=== PATIENT | female | born 1980 | race Hispanic/Latino ===

== ENCOUNTER 2016-04-04 21:31 | Emergency (ER) | payer SELFPAY ==
[~2016-04-04 21:31] MED LIST: FES300 PO; GLU500 PO; PNV1TABL PO; SULF1TAB35 PO
[2016-04-04 21:36] VITALS: BP 116/79; PULSE 124; RESP 18; O2SAT 97
[2016-04-04 22:03] LABS: BASOPHILS % (AUTO) 0.1 % (0-3); EOSINOPHILS % (AUTO) 0.9 % (0-5); MONOCYTES % (AUTO) 4.4 % (4-12); Mean Corpuscular Hemoglobin 31.2 pg (27.0-35.0); Mean Corpuscular Volume 89.8 fL (81-100); NEUTROPHILS % (AUTO) 86.3 % (40-74); Platelet Count 365 bil/L (150-400)
[2016-04-04 22:24] LABS: Magnesium 1.7 mg/dL (1.6-2.6)
[2016-04-04 23:14] LABS: APPEARANCE,URINE CLOUDY (CLEAR,HAZY); COLOR,URINE YELLOW (YELLOW); OCCULT BLOOD,URINE MODERATE (NEGATIVE); PH,URINE 5.5 (5.0-8.0); UROBILINOGEN,URINE NORMAL (NORMAL)
--- NOTE | 2016-04-05 00:03 | ED.REPORT ---
HPI-Abd Pain F Under 41 Date of Service Apr 05, 2016 ED Provider: Dr. Paresh Daniel M.D. A 35 year old female with a history of diabetes and UTI presents to the ED with lower abdominal pain onset four days ago. The patient also reports nausea and vomiting (x2) this evening. She denies diarrhea, cough, hematochezia, hematuria , fever, or other symptoms. The patient speaks Chinese and her daughter was translating. Nursing Notes Stated Complaint: STOMACH PAIN Chief Complaint: Female Abdominal Pain Nursing Notes Reviewed: Yes Allergies: Coded Allergies: No Known Allergies (Unverified Allergy, Unknown, 04/04/16) Scheduled Cephalexin (Keflex) 500 Mg Capsule 500 MG PO QID Ferrous Sulfate-Expunged Drug, Do Not Renew! (Feosol-Expunged Drug, Do Not Renew !) 325 Mg Tablet 325 MG PO DAILY Metformin-Expunged Drug, Do Not Renew! (Metformin-Expunged Drug, Do Not Renew!) 500 Mg Tablet 500 MG PO BID TAKE WITH EVENING MEAL Ondansetron ODT (Ondansetron ODT) 8 Mg Tab.rapdis 8 MG PO QID Sulfamethoxazole/Trimeth 800-160 mg (Bactrim DS 800-160 mg) 1 Each Tablet 1 TABLET PO BID Miscellaneous Medications Pnv With Ca,No.72/Iron/Fa (Pnv Plus Multivit Tab) 1 Each Tablet 1 EACH PO General Time Seen by MD: 00:02 Chief Complaint Abdominal pain Hx Obtained From: Patient, Daughter Arrived By: Walk-in Sudden in Onset?: Yes Onset Occurred: 4 days ago Symptom Duration: Since onset Location: : Abdomen lower Quality: Painful Severity: Current: Moderate Severity: Maximum: Moderate Associated with: Reports: Nausea, Vomiting, Denies: Fever, Hematochezia, Hematuria Pertinent Negative: Relieved by nothing Recent Healthcare: No recent doctor visit Similar Sx Previous: Yes Past Medical History Past Medical History DM on Metformin UTI Past Surgical History Reports: Smoking History Never Smoker Social History Alcohol Use: Denies alcohol use Drug Use: Denies drug use Other Social History: Good social support, Lives with children Ambulatory Status Independent Review of Systems Constitutional: Denies: Fever Respiratory: Denies: Non-productive cough, Shortness of breath GI: Reports: Abdominal pain (Lower), Nausea, Vomiting (x2), Denies: Diarrhea, Hematochezia Female: Denies: Hematuria Complete sys rev & neg: except as marked. Physical Exam Initial Vital Signs Vital Signs (First) Date Time Temp Pulse Resp B/P Pulse Ox O2 Delivery O2 Flow Rate FiO2 04/04/16 21:36 37.0 124 18 116/79 97 Room Air Initial VS: Reviewed Head / Eyes: Atraumatic, Normocephalic ENT: Conjunctiva normal, No scleral icterus Skin: Warm, Dry, No cyanosis Neurologic: Alert, Oriented, Nonfocal Psychiatric: Mood/affect normal, Behavior normal, Normal thought content General/Constitutional: Awake, Alert Appearance / Presentation: Positive: Uncomfortable Flushed Respiratory / Chest: Breath sounds NL, Breath sounds = bilat, No respiratory distress Cardiovascular: Heart rate NL, Regular rhythm, Heart sounds NL Abdomen: Soft, Non-tender Interpretation & Diagnostics URINE DIPSTICK: 1.025 sp gravity 5 pH + Leukocytes Positive Nitrite Trace protein 250 mg/dl Glucose + Small Ketones Normal Urobilinogen ~ 250 Prabhjot/ml Blood URINE : Negative Lab Results Interpretation Result Diagram: 04/04/16214904/04/162149 Test 04/04/16 21:50 04/04/16 22:57 White Blood Count 15.1th/mm3 (3.8-10.1) Red Blood Count 4.71mil/mm3 (3.90-5.20) Hemoglobin 14.7g/dL (12.0-15.6) Hematocrit 42.3% (35.0-46.0) Mean Corpuscular Volume 89.8fL (81-100) Mean Corpuscular Hemoglobin 31.2pg (27.0-35.0) Mean Corpuscular Hemoglobin Concent 34.8% (32.0-37.0) Red Cell Distribution Width 12.3% (12.3-15.4) Platelet Count 365bil/L (150-400) Neutrophils (%) (Auto) 86.3% (40-74) Lymphocytes (%) (Auto) 8.0% (14-46) Monocytes (%) (Auto) 4.4% (4-12) Eosinophils (%) (Auto) 0.9% (0-5) Basophils (%) (Auto) 0.1% (0-3) Sodium Level 133mEq/L (134-144) Potassium Level 3.7mEq/L (3.5-5.2) Chloride Level 99mEq/L (97-108) Carbon Dioxide Level 22mmol/L (18-29) Blood Urea Nitrogen 17mg/dL (6-20) Creatinine 0.46mg/dL (0.57-1.00) Estimat Glomerular Filtration Rate 223mL/min (>59) Glucose Level 285mg/dL (60-99) Calcium Level 8.8mg/dL (8.5-10.1) Magnesium Level 1.7mg/dL (1.6-2.6) Total Bilirubin 0.8mg/dL (0.0-1.2) Aspartate Amino Transf (AST/SGOT) 16U/L (0-50) Alanine Aminotransferase (ALT/SGPT) 26U/L (0-32) Alkaline Phosphatase 93U/L (25-150) Total Protein 7.6g/dL (6.4-8.4) Albumin 4.0g/dL (3.4-5.0) Lipase 40U/L (13-60) Hold Haney Top Tube Received (Received) Urine Color Yellow (YELLOW) Urine Appearance Cloudy (CLEAR,HAZY) Urine pH 5.5 (5.0-8.0) Urine Specific [place] 1.030 (1.003-1.035) Urine Protein 30mg/dL (NEG,TRACE) Urine Glucose (UA) 500mg/dL (NEGATIVE) Urine Ketones Tracemg/dL (NEGATIVE) Urine Occult Blood Moderate (NEGATIVE) Urine Nitrite Positive (NEGATIVE) Urine Bilirubin Negative (NEGATIVE) Urine Urobilinogen Normalmg/dL (NORMAL) Urine Leukocyte Esterase Small (NEGATIVE) Urine RBC 3-10/hpf (0-2) Urine WBC Packed/hpf (0-5) Urine Epithelial Cells Many/hpf (NONE-MOD) Urine Crystals None seen (NONE SEEN) Urine Bacteria Many/hpf (NONE-FEW) Urine Hyaline Casts None/lpf (NONE) Urine Granular Casts None seen (NONE SEEN) Urine Waxy Casts None seen (NONE SEEN) Urine Red Blood Cell Casts None seen (NONE SEEN) Urine White Blood Cell Casts None seen (NONE SEEN) Urine Mucus None seen (None Seen) Urine Trichomonas None seen (NONE SEEN) Urine Yeast None (NONE SEEN) Urinalysis Comment None Urine Culture Reflexed Indicated Re-Eval/Medical Decision Med Decision/Clinical Course Med Decision/Clinical Course: 35-year-old with diabetes presents with lower pelvic pain for four days. She vomited today and the pain was a bit worse. She is felt flushed but no overt fever. Exam is benign with minimal tenderness. No evidence of peritonitis. Urinalysis is grossly positive. White count moderately elevated at 15,000. Remainder of her labs are unremarkable. Begun with Rocephin IV for her UTI, some IV hydration provided, Zofran for nausea, and she is discharged now with Keflex to follow for a ten-day course. Early follow-up with PCP advised. Source of Hx: Old records Re-Evaluation/Progress : Time of Eval: :15 Patient Status: Condition improved Re-Evaluation/Progress Note: Discussed with patient lab results, diagnosis, and plan for discharge. Follow-up and return to the ER instructions given. Patient agrees with plan for care and all questions were addressed. Counseled Regarding: Diagnosis, Lab results, Need for follow-up, When/why to return to ED Discharge & Departure Shift Change Sign-Out Response to Therapy: Improved Primary Impression: UTI (urinary tract infection) Urinary tract infection type: acute cystitis Hematuria presence: without hematuria Qualified Code: N30.00 - Acute cystitis without hematuria Additional Impression: Diabetes mellitus Diabetes mellitus type: type 2 Diabetes mellitus complication status: without complication Qualified Code: E11.9 - Type 2 diabetes mellitus without complications Disposition: Home Discharge Condition All VS Reviewed: Yes Condition: Improved Patient Instructions: Urinary Tract Infection in Women (ED) Additional Instructions: Take Keflex four times daily for ten days. Drink plenty of fluids and maintain good hydration. Return if any immediate issues, such as continued fever, worsening symptoms despite treatment, vomiting, or other new symptoms of concern. Take Zofran up to four times daily if needed for nausea. Follow-up with your doctor in the office. Call tomorrow morning for follow-up visit. Wasta Keflex cuatro veces al da cyril sandra bassett. Korin muchos lquidos y mantenga raphael buena hidratacin. Regrese si hay problemas inmediatos, jose m fiebre continua, empeoramiento de los sntomas a pesar del tratamiento, vmitos u otros nuevos sntomas de preocupacin. Wasta Zofran hasta cuatro veces al da si es necesario para las nuseas. Seguimiento con presley mdico en la oficina. Llame maana por la maana para raphael visita de seguimiento. Referrals: Arie Winter MD (PCP) Scribe Attestation Portions of this note were transcribed by Violeta Morrell. I, Dr. Daniel, personally performed the history, physical exam, and medical decision-making; I reviewed and confirmed the accuracy of the information in the transcribed note. Signed by: Shannan Kerr, 04/05/2016, 02:05 copies to: Arie Winter MD, Christopher W MD Apr 05, 2016 00:03 VIOLETA MORRELL Apr 05, 2016 00:13
[2016-04-05] MEDS ORDERED: cefTRIAXone Inj 2,000 MG in Dextrose 5% Minibag Plus 50 ML IV ONE (00:15)
[2016-04-05] MEDS ORDERED: 0.9% Sodium Chloride 1,000 ML IV ONE (00:15)
[2016-04-05] MEDS ORDERED: Ondansetron 2 mg/mL 2 mL Inj IVPUSH ONE (00:55)
[2016-04-05] MEDS ORDERED: ONDA8TAB10 PO (01:21)
[2016-04-05] MEDS ORDERED: CEPH-512 PO (01:21)
[2016-04-05 01:30] VITALS: BP 102/62; PULSE 99; RESP 16; O2SAT 98
== END 2016-04-05 01:30 | disposition home or self-care (01) ==
LOC: SED 21:31
DX: N30.00 Acute cystitis without hematuria (principal); E11.9 Type 2 diabetes mellitus without complications; B96.20 Unspecified Escherichia coli [E. coli] as the cause of diseases classified elsewhere; Z79.84 Long term (current) use of oral hypoglycemic drugs
CPT/HCPCS: 36415; 80053; 81000; 81025; 83690; 83735; 85025; 87086; 87088; 87186; 96361; 96365; 96375; 99285; J0696; J2405; J7030